=== PATIENT | male | born 1960 | race Two or more races ===

== ENCOUNTER 2023-07-07 08:47 | Inpatient (IN) | payer OTHER ==
[~2023-07-07] VITALS: Ht 165.1 cm; Wt 56.7 kg
--- NOTE | 2023-07-07 08:50 | NUR ---
PACIENTE ALERTA Y ORIENTADO X3 QUIEN REFEIRE PROBELMAS PARA ORINAR Y DOLOR EN VEJIGA.PACIENTE REFIERE RECIBIO TRATAMIENTO DE CANCER HACE JOSE ANO Y EL MISMO ABANDONO EL TRATAMIENTO.
--- NOTE | 2023-07-07 08:58 | NUR ---
PACIENTE REFIERE QUE EL DOLOR ES SOLO AL ORINAR.
--- NOTE | 2023-07-07 10:37 | NUR ---
SE EDUCA A PTE SOBRE PROCEDIMIENTO MEDICO SOLICITADO POR MD EN TURNO. AL MOMENTO PTE REFIERE ENTENDER Y SE REALIZA MAHAD DE MUESTRAS BAJO MEDIDAS ASEPTICAS Y MITALI ORDEN MEDICA.
[2023-07-07 11:04] LABS: PH,URINE 5.5 (5.0-8.0); URINE APPEARANCE Cloudy; URINE BILIRRUBIN Negative (NEGATIVE); URINE BLOOD Moderate; URINE COLOR Yellow; URINE GLUCOSE Negative (NEGATIVE); URINE LEUKOCYTE Large; URINE NITRATE Positive; URINE PROTEIN 30 (NEGATIVE); URINE UROBILINOGEN 0.2 E.U./dl
[2023-07-07 11:08] LABS: HEMATOCRIT 34.6 % (39.0-48.0); HEMOGLOBIN 11.4 g/dL (13-16.00); MEAN CELL VOLUME 90.6 fL (80.0-100.00); MEAN CORPUSCULAR HEMOGLOBIN 29.8 pg (27.00-32.0); MEAN CORPUSCULAR HGB CONC 32.9 g/dl (32.0-36.0); PLATELET COUNT 336 K/uL (150-450); RED BLOOD COUNT 3.82 M/uL (4.00-6.00); RED CELL DISTRIBUTION WIDTH 14.3 % (11.5-14.5); URINE EPITHELIAL CELLS 7.8 uL (0.0-38.8); URINE RBC 63.8 uL (0.0-20.8); URINE WBC 1036.3 uL (0.0-23.2)
[2023-07-07 11:30] LABS: ALBUMIN 3.3 gm/dL (3.4-5.0); BILIRUBIN TOTAL 0.53 mg/dL (0.3-1.2); CALCIUM 9.9 mg/dL (8.5-10.1); CREATININE SERUM 2.24 mg/dL (0.70-1.30); GFR 29.85; GLOBULINA 5.2 G/DL (2.4-3.5); POTASSIUM 4.04 mEq/L (3.5-5.1); TOTAL PROTEIN 8.5 gm/dL (6.4-8.2)
[2023-07-07 11:51] LABS: URINE BACTERIA > 9821.5 uL (0.0-1933)
--- NOTE | 2023-07-07 13:39 | NUR ---
SE UBICA A PTE EN AREA DE OBSERVACION, SE CANALIZA BAJO MEDIDAS ASEPTICAS Y SE COLOCA IV FLUIDS A 125 MLS/HR. PEND CT
[2023-07-07] MEDS ORDERED: 0.9 % SODIUM CHLORIDE 1,000 ML IV SCH ×2 (13:45→17:45)
[2023-07-07] MEDS ORDERED: hydrALAZINE HCL 20 MG VIAL IV PRN (17:45)
[2023-07-07] MEDS ORDERED: ACETAMINOPHEN 500 MG GEL..CAP PO PRN (17:45)
[2023-07-07] MEDS ORDERED: ONDANSETRON HCL 4 MG in 0.9 % SODIUM CHLORIDE 50 ML IV PRN (17:45)
[2023-07-07] MEDS ORDERED: MORPHINE SULFATE 4 MG/ML CARTRIDGE IV PRN (17:45)
[2023-07-07] MEDS ORDERED: CEFTRIAXONE SODIUM 1,000 MG VIAL IV SCH (17:48)
[2023-07-07] MEDS ORDERED: TAMSULOSIN HCL 0.4 MG CAP PO SCH (17:49)
[2023-07-07 19:54] LABS: ALBUMIN 2.7 gm/dL (3.4-5.0); CALCIUM 8.7 mg/dL (8.5-10.1); GFR 34.02; PHOSPHOROUS 2.9 mg/dL (2.5-4.9); POTASSIUM 4.11 mEq/L (3.5-5.1)
[2023-07-07] MEDS ORDERED: FAMOTIDINE/PF 20 MG in 0.9 % SODIUM CHLORIDE 8 ML IV PUSH SCH (21:00)
[2023-07-08 08:37] LABS: PH,URINE 5.5 (5.0-8.0); URINE APPEARANCE Turbid; URINE BILIRRUBIN Negative (NEGATIVE); URINE BLOOD Moderate; URINE COLOR Yellow; URINE GLUCOSE Negative (NEGATIVE); URINE LEUKOCYTE Large; URINE NITRATE Positive; URINE PROTEIN 30 (NEGATIVE); URINE UROBILINOGEN 0.2 E.U./dl
[2023-07-08 08:41] LABS: HEMATOCRIT 28.9 % (39.0-48.0); MEAN CELL VOLUME 89.7 fL (80.0-100.00); MEAN CORPUSCULAR HGB CONC 33.3 g/dl (32.0-36.0); PLATELET COUNT 271 K/uL (150-450); RED BLOOD COUNT 3.23 M/uL (4.00-6.00); RED CELL DISTRIBUTION WIDTH 14.7 % (11.5-14.5)
[2023-07-08 08:45] LABS: URINE BACTERIA 2511.1 uL (0.0-1933); URINE EPITHELIAL CELLS 7.1 uL (0.0-38.8); URINE RBC 90.9 uL (0.0-20.8)
[2023-07-08 08:47] LABS: HEMOGLOBIN 9.6 g/dL (13-16.00); MEAN CORPUSCULAR HEMOGLOBIN 29.7 pg (27.00-32.0)
[2023-07-08] MEDS ORDERED: ENOXAPARIN SODIUM 40 MG/0.4 ML SYRINGE SUBCUTANEO SCH (09:00)
[2023-07-08 09:23] LABS: ALBUMIN 2.6 gm/dL (3.4-5.0); BILIRUBIN TOTAL 0.44 mg/dL (0.3-1.2); BILIRUBIN,CONJUGATED 0.14 mg/dL (0.0-0.2); BILIRUBIN,UNCONJUGATED 0.3 mg/dL (0.0-0.6); C-REACTIVE PROTEIN 5.3 MG/DL (0.00-0.29); CALCIUM 8.7 mg/dL (8.5-10.1); CHOL HDL RATIO 2.3 (0-5.0); CREATININE SERUM 2.09 mg/dL (0.70-1.30); GFR 32.34; GLOBULINA 3.5 G/DL (2.4-3.5); POTASSIUM 4.07 mEq/L (3.5-5.1); TOTAL PROTEIN 6.1 gm/dL (6.4-8.2)
[2023-07-08 09:40] LABS: INR 1.04; PARTIAL THROMBOPLASTIN TIME 32.7 SECONDS (22.0-34.0); PROTHROMBIN TIME 10.9 SECONDS (9.0-11.5)
[2023-07-08 09:44] LABS: ERYTHROCYTE SEDIMENTATION RATE 86 mm/hr
[2023-07-09] MEDS ORDERED: FAMOTIDINE/PF 20 MG in 0.9 % SODIUM CHLORIDE 8 ML IV PUSH SCH (09:00)
[2023-07-10 11:02] LABS: HEMATOCRIT 37.8 % (39.0-48.0); MEAN CELL VOLUME 88.5 fL (80.0-100.00); MEAN CORPUSCULAR HEMOGLOBIN 30.4 pg (27.00-32.0); MEAN CORPUSCULAR HGB CONC 34.3 g/dl (32.0-36.0); PLATELET COUNT 248 K/uL (150-450); RED BLOOD COUNT 4.27 M/uL (4.00-6.00)
[2023-07-10] MEDS ORDERED: MORPHINE SULFATE 4 MG/ML CARTRIDGE IV PRN (14:15)
[2023-07-10] MEDS ORDERED: CHLORHEXIDINE GLUCONATE 120 ML BOTTLE TOP ONE ×2 (21:02→21:30)
[2023-07-11] MEDS ORDERED: DIPHENHYDRAMINE HCL 50 MG/ML VIAL 1ML ONE (00:47)
[2023-07-11] MEDS ORDERED: DIPHENHYDRAMINE HCL 50 MG in 0.9 % SODIUM CHLORIDE 50 ML IV ONE (01:00)
[2023-07-11] MEDS ORDERED: OXYBUTYNIN CHLORIDE 5 MG TABLET PO ONE (01:00)
[2023-07-11] MEDS ORDERED: ONDANSETRON HCL 2 MG/ML VIAL ONE (01:58)
[2023-07-11] MEDS ORDERED: hydrALAZINE HCL 20 MG VIAL ONE (02:25)
[2023-07-11 06:26] LABS: HEMATOCRIT 35.5 % (39.0-48.0); HEMOGLOBIN 11.9 g/dL (13-16.00); MEAN CELL VOLUME 87.2 fL (80.0-100.00); MEAN CORPUSCULAR HEMOGLOBIN 29.1 pg (27.00-32.0); MEAN CORPUSCULAR HGB CONC 33.4 g/dl (32.0-36.0); PLATELET COUNT 242 K/uL (150-450); RED BLOOD COUNT 4.08 M/uL (4.00-6.00)
[2023-07-11 07:07] LABS: ALBUMIN 2.7 gm/dL (3.4-5.0); CALCIUM 8.7 mg/dL (8.5-10.1); CREATININE SERUM 2.76 mg/dL (0.70-1.30); GFR 23.46; PHOSPHOROUS 2.2 mg/dL (2.5-4.9); POTASSIUM 4.04 mEq/L (3.5-5.1)
[2023-07-11] MEDS ORDERED: SODIUM CHLORIDE 0.45 % 1,000 ML IV SCH (13:00)
[2023-07-11] MEDS ORDERED: MEROPENEM 500 MG/VIAL VIAL IV SCH (17:00)
[2023-07-12 04:43] LABS: HEMATOCRIT 35.1 % (39.0-48.0); HEMOGLOBIN 11.7 g/dL (13-16.00); MEAN CELL VOLUME 87.9 fL (80.0-100.00); MEAN CORPUSCULAR HEMOGLOBIN 29.3 pg (27.00-32.0); MEAN CORPUSCULAR HGB CONC 33.4 g/dl (32.0-36.0); PLATELET COUNT 227 K/uL (150-450); RED BLOOD COUNT 3.99 M/uL (4.00-6.00)
[2023-07-12 04:59] LABS: CALCIUM 8.2 mg/dL (8.5-10.1); CREATININE SERUM 3.07 mg/dL (0.70-1.30); GFR 20.75; POTASSIUM 4.13 mEq/L (3.5-5.1)
[2023-07-12 05:01] LABS: ALBUMIN 2.4 gm/dL (3.4-5.0); CALCIUM 8.3 mg/dL (8.5-10.1); CREATININE SERUM 3.06 mg/dL (0.70-1.30); GFR 20.83; PHOSPHOROUS 3.1 mg/dL (2.5-4.9); POTASSIUM 4.13 mEq/L (3.5-5.1)
[2023-07-12] MEDS ORDERED: OXYBUTYNIN CHLORIDE 5 MG TABLET PO SCH (10:39)
[2023-07-12 11:59] LABS: HEMATOCRIT 33.7 % (39.0-48.0); HEMOGLOBIN 11.3 g/dL (13-16.00); MEAN CELL VOLUME 87.7 fL (80.0-100.00); MEAN CORPUSCULAR HEMOGLOBIN 29.5 pg (27.00-32.0); MEAN CORPUSCULAR HGB CONC 33.6 g/dl (32.0-36.0); PLATELET COUNT 217 K/uL (150-450); RED BLOOD COUNT 3.84 M/uL (4.00-6.00); RED CELL DISTRIBUTION WIDTH 15.2 % (11.5-14.5)
[2023-07-13 05:52] LABS: ALBUMIN 2.3 gm/dL (3.4-5.0); BILIRUBIN TOTAL 0.59 mg/dL (0.3-1.2); CALCIUM 8.2 mg/dL (8.5-10.1); CREATININE SERUM 2.48 mg/dL (0.70-1.30); GFR 26.54; GLOBULINA 3.2 G/DL (2.4-3.5); POTASSIUM 4.19 mEq/L (3.5-5.1); TOTAL PROTEIN 5.5 gm/dL (6.4-8.2)
[2023-07-13] MEDS ORDERED: MEROPENEM 500 MG/VIAL VIAL IV SCH (17:00)
[2023-07-14 08:08] LABS: CALCIUM 8.9 mg/dL (8.5-10.1); CREATININE SERUM 2.07 mg/dL (0.70-1.30); GFR 32.7; POTASSIUM 4.54 mEq/L (3.5-5.1)
[2023-07-14 08:09] LABS: HEMATOCRIT 34.3 % (39.0-48.0); HEMOGLOBIN 11.5 g/dL (13-16.00); MEAN CELL VOLUME 87.4 fL (80.0-100.00); MEAN CORPUSCULAR HEMOGLOBIN 29.4 pg (27.00-32.0); MEAN CORPUSCULAR HGB CONC 33.7 g/dl (32.0-36.0); PLATELET COUNT 240 K/uL (150-450); RED BLOOD COUNT 3.92 M/uL (4.00-6.00); RED CELL DISTRIBUTION WIDTH 14.8 % (11.5-14.5)
[2023-07-14] MEDS ORDERED: AMLODIPINE BESYLATE 2.5 MG TABLET PO SCH (11:26)
[2023-07-15] MEDS ORDERED: MINERAL OIL 30 ML BLIST.PACK PO STA (12:06)
[2023-07-15] MEDS ORDERED: LACTULOSE 20 G/30 ML BLIST.PACK PO STA (12:07)
[2023-07-15] MEDS ORDERED: DOCUSATE CALCIUM 240 MG CAPSULE PO SCH (12:07)
[2023-07-17 06:18] LABS: HEMATOCRIT 35.4 % (39.0-48.0); MEAN CELL VOLUME 87.3 fL (80.0-100.00); MEAN CORPUSCULAR HEMOGLOBIN 29.5 pg (27.00-32.0); MEAN CORPUSCULAR HGB CONC 33.8 g/dl (32.0-36.0); PLATELET COUNT 267 K/uL (150-450); RED BLOOD COUNT 4.06 M/uL (4.00-6.00); RED CELL DISTRIBUTION WIDTH 14.1 % (11.5-14.5)
[2023-07-17 06:25] LABS: ALBUMIN 2.7 gm/dL (3.4-5.0); BILIRUBIN TOTAL 0.53 mg/dL (0.3-1.2); CREATININE SERUM 1.64 mg/dL (0.70-1.30); GFR 42.78; GLOBULINA 3.8 G/DL (2.4-3.5); POTASSIUM 4.69 mEq/L (3.5-5.1); TOTAL PROTEIN 6.5 gm/dL (6.4-8.2)
[2023-07-17] MEDS ORDERED: MEROPENEM 500 MG/VIAL VIAL IV SCH ×2 (09:00→17:00)
[2023-07-17] MEDS ORDERED: MIDAZOLAM HCL 2 MG/2 ML VIAL IV PUSH ONE (17:15)
[2023-07-17] MEDS ORDERED: fentaNYL CITRATE 50 MCG/ML AMPUL IV PUSH ONE (17:15)
[2023-07-18] MEDS ORDERED: MORPHINE SULFATE 4 MG/ML CARTRIDGE IV PRN (00:45)
[2023-07-19 06:51] LABS: HEMATOCRIT 34.8 % (39.0-48.0); HEMOGLOBIN 11.8 g/dL (13-16.00); MEAN CELL VOLUME 86.8 fL (80.0-100.00); MEAN CORPUSCULAR HEMOGLOBIN 29.5 pg (27.00-32.0); PLATELET COUNT 316 K/uL (150-450); RED BLOOD COUNT 4.01 M/uL (4.00-6.00); RED CELL DISTRIBUTION WIDTH 14.7 % (11.5-14.5)
[2023-07-19 07:36] LABS: ALBUMIN 2.8 gm/dL (3.4-5.0); CALCIUM 8.6 mg/dL (8.5-10.1); CREATININE SERUM 1.44 mg/dL (0.70-1.30); GFR 49.71; PHOSPHOROUS 3.1 mg/dL (2.5-4.9); POTASSIUM 4.48 mEq/L (3.5-5.1)
== END 2023-07-19 19:09 | disposition home or self-care (01) | DRG 694 ==
LOC: ER 08:47 → MEDJ 18:19
PROVIDERS: General Practice; Internal Medicine Nephrology; Urology; ADMIT Internal Medicine; ATTEND Internal Medicine
PROC: BW21ZZZ Computerized Tomography (CT Scan) of Abdomen and Pelvis (ICD-10-PCS; principal; 2023-07-07)
PROC: 0T9130Z Drainage of Left Kidney with Drainage Device, Percutaneous Approach (ICD-10-PCS; 2023-07-17)
PROC: 0T9030Z Drainage of Right Kidney with Drainage Device, Percutaneous Approach (ICD-10-PCS; 2023-07-17)
DX: N13.39 Other hydronephrosis (principal); N39.0 Urinary tract infection, site not specified; N13.5 Crossing vessel and stricture of ureter without hydronephrosis; N17.8 Other acute kidney failure; R30.0 Dysuria; D72.828 Other elevated white blood cell count

== ENCOUNTER 2023-11-09 11:44 | Inpatient (IN) | payer OTHER ==
[~2023-11-09] VITALS: Ht 152.4 cm; Wt 49.9 kg
[2023-11-09 15:23] LABS: HEMATOCRIT 33.6 % (39.0-48.0); HEMOGLOBIN 11.2 g/dL (13-16.00); MEAN CELL VOLUME 91.5 fL (80.0-100.00); MEAN CORPUSCULAR HEMOGLOBIN 30.6 pg (27.00-32.0); MEAN CORPUSCULAR HGB CONC 33.4 g/dl (32.0-36.0); PLATELET COUNT 517 K/uL (150-450); RED BLOOD COUNT 3.68 M/uL (4.00-6.00); RED CELL DISTRIBUTION WIDTH 13.6 % (11.5-14.5)
[2023-11-09 15:27] LABS: ALBUMIN 3.1 gm/dL (3.4-5.0); ALKALINE PHOSPHATASE 94 U/L (50-136); ALT/SGPT 22 U/L (12-78); ANION GAP 15 (10.0-20.0); AST/SGOT 29 U/L (15-37); BILIRUBIN TOTAL 0.45 mg/dL (0.3-1.2); BLOOD UREA NITROGEN 17 mg/dL (7-18); BUN CREA RATIO 11 (7.0-25.0); CALCIUM 9.8 mg/dL (8.5-10.1); CARBON DIOXIDE 23 mEq/L (21-32); CHLORIDE 98 mmol/L (98-107); CREATININE SERUM 1.51 mg/dL (0.70-1.30); GFR 47.06; GLUCOSE FASTING 92 mg/dL (65-100); OSMOLALITY SERUM 264 MOSM/KG (275-295); POTASSIUM 4.72 mEq/L (3.5-5.1); SODIUM 131 mmol/L (136-145); TOTAL PROTEIN 7.9 gm/dL (6.4-8.2)
[2023-11-09] MEDS ORDERED: MEPERIDINE HCL/PF 50 MG/ML VIAL IM STA (15:29)
[2023-11-09 15:34] LABS: BILIRUBIN,CONJUGATED < 0.10 mg/dL (0.0-0.2); BILIRUBIN,UNCONJUGATED 0.35 mg/dL (0.0-0.6)
[2023-11-09 15:35] LABS: PH,URINE 8.5 (5.0-8.0); URINE APPEARANCE Turbid; URINE BILIRRUBIN Negative (NEGATIVE); URINE BLOOD Large; URINE COLOR Yellow; URINE GLUCOSE Negative (NEGATIVE); URINE KETONE Negative (NEGATIVE); URINE LEUKOCYTE Large; URINE NITRATE Negative; URINE UROBILINOGEN 0.2 E.U./dl
[2023-11-09 15:39] LABS: URINE CAST 12.52 uL (0.0-1.40); URINE EPITHELIAL CELLS 20.8 uL (0.0-38.8); URINE RBC 1603.5 uL (0.0-20.8); URINE WBC 442.3 uL (0.0-23.2)
[2023-11-09] MEDS ORDERED: PROMETHAZINE HCL 25 MG/ML AMPUL ONE (15:47)
[2023-11-09 15:56] LABS: URINE BACTERIA > 9821.5 uL (0.0-1933); URINE PROTEIN 300 (NEGATIVE)
[2023-11-09] MEDS ORDERED: 0.9 % SODIUM CHLORIDE 1,000 ML IV SCH (17:30)
[2023-11-09] MEDS ORDERED: OxyCODONE HCL/APAP UD (PERCOCET) PO PRN (17:45)
[2023-11-09] MEDS ORDERED: ONDANSETRON HCL 4 MG in 0.9 % SODIUM CHLORIDE 50 ML IV PRN (17:45)
[2023-11-09] MEDS ORDERED: ACETAMINOPHEN 500 MG GEL..CAP PO PRN (17:45)
[2023-11-09] MEDS ORDERED: MEROPENEM 500 MG in 0.9 % SODIUM CHLORIDE 50 ML IV SCH (18:30)
[2023-11-09 18:45] LABS: INR 1.02; PARTIAL THROMBOPLASTIN TIME 35.5 SECONDS (22.0-34.0); PROTHROMBIN TIME 10.7 SECONDS (9.0-11.5)
[2023-11-09 18:46] LABS: MAGNESIUM 1.9 mg/dL (1.8-2.4); PHOSPHOROUS 4.2 mg/dL (2.5-4.9)
[2023-11-09 18:49] LABS: C-REACTIVE PROTEIN 8.76 MG/DL (0.00-0.29)
[2023-11-09 21:43] LABS: ABG PH 7.421 (7.35-7.45); ABG PO2 101.8 mmHg (80-100); ABG pCO2 36.5 mmHg (35-45); BASE EXCESS -0.8 mmol/l; BICARBONATE 23.2 mmol/l (23-25); SaO2 97.9 %; Tco2 24.3 mmol/l
[2023-11-09 22:00] LABS: allen test SATISFACTORY; o2 21 %; puncture site RADIAL RIGHT
[2023-11-10] MEDS ORDERED: SODIUM CL 0.9% 50 ML IV.SOLN IV ONE (08:03)
[2023-11-10] MEDS ORDERED: FAMOTIDINE/PF 20 MG in 0.9 % SODIUM CHLORIDE 8 ML IV PUSH SCH (09:00)
[2023-11-10] MEDS ORDERED: ENOXAPARIN SODIUM 30 MG/0.3 ML SYRINGE SUBCUTANEO SCH (09:00)
[2023-11-10 12:46] LABS: ALBUMIN 2.9 gm/dL (3.4-5.0); CALCIUM 9.2 mg/dL (8.5-10.1); CREATININE SERUM 1.84 mg/dL (0.70-1.30); GFR 37.46; PHOSPHOROUS 4.2 mg/dL (2.5-4.9); POTASSIUM 4.4 mEq/L (3.5-5.1); URIC ACID 6.9 mg/dL (3.5-8.5)
[2023-11-11] MEDS ORDERED: FAMOTIDINE/PF 20 MG/2 ML VIAL ONE (09:11)
[2023-11-11] MEDS ORDERED: MORPHINE SULFATE 4 MG/ML CARTRIDGE IV PRN (12:15)
[2023-11-12 06:58] LABS: HEMATOCRIT 29.4 % (39.0-48.0); HEMOGLOBIN 9.9 g/dL (13-16.00); MEAN CELL VOLUME 90.5 fL (80.0-100.00); MEAN CORPUSCULAR HEMOGLOBIN 30.5 pg (27.00-32.0); MEAN CORPUSCULAR HGB CONC 33.7 g/dl (32.0-36.0); PLATELET COUNT 376 K/uL (150-450); RED BLOOD COUNT 3.25 M/uL (4.00-6.00); RED CELL DISTRIBUTION WIDTH 13.9 % (11.5-14.5)
[2023-11-12] MEDS ORDERED: FAMOTIDINE/PF 20 MG/2 ML VIAL ONE (09:40)
[2023-11-12 17:24] LABS: PH,URINE 6.5 (5.0-8.0); URINE APPEARANCE Clear; URINE BILIRRUBIN Negative (NEGATIVE); URINE BLOOD Moderate; URINE COLOR Yellow; URINE GLUCOSE Negative (NEGATIVE); URINE KETONE Negative (NEGATIVE); URINE LEUKOCYTE Small; URINE NITRATE Negative; URINE PROTEIN 30 (NEGATIVE); URINE UROBILINOGEN 0.2 E.U./dl
[2023-11-12 17:27] LABS: URINE BACTERIA 234.2 uL (0.0-1933); URINE EPITHELIAL CELLS 4.7 uL (0.0-38.8); URINE RBC 122.7 uL (0.0-20.8); URINE WBC 32.5 uL (0.0-23.2)
[2023-11-12 17:32] LABS: URINE CAST 0.61 uL (0.0-1.40)
[2023-11-13 05:20] LABS: HEMATOCRIT 34.4 % (39.0-48.0); MEAN CORPUSCULAR HGB CONC 34.4 g/dl (32.0-36.0); PLATELET COUNT 387 K/uL (150-450); RED BLOOD COUNT 3.74 M/uL (4.00-6.00); RED CELL DISTRIBUTION WIDTH 14.1 % (11.5-14.5)
[2023-11-13 05:21] LABS: HEMOGLOBIN 11.8 g/dL (13-16.00); MEAN CORPUSCULAR HEMOGLOBIN 31.5 pg (27.00-32.0)
[2023-11-13] MEDS ORDERED: FAMOTIDINE/PF 20 MG/2 ML VIAL ONE (09:57)
[2023-11-13] MEDS ORDERED: fentaNYL CITRATE 50 MCG/ML AMPUL IV PUSH ONE (16:30)
[2023-11-13] MEDS ORDERED: MIDAZOLAM HCL 2 MG/2 ML VIAL IV PUSH ONE (16:30)
[2023-11-15 08:58] LABS: HEMOGLOBIN 10.5 g/dL (13-16.00); MEAN CELL VOLUME 91.6 fL (80.0-100.00); MEAN CORPUSCULAR HGB CONC 33.9 g/dl (32.0-36.0); PLATELET COUNT 355 K/uL (150-450); RED BLOOD COUNT 3.38 M/uL (4.00-6.00); RED CELL DISTRIBUTION WIDTH 14.3 % (11.5-14.5)
[2023-11-15 09:42] LABS: CALCIUM 8.9 mg/dL (8.5-10.1); CREATININE SERUM 2.07 mg/dL (0.70-1.30); GFR 32.7; POTASSIUM 4.6 mEq/L (3.5-5.1)
[2023-11-15] MEDS ORDERED: DOCUSATE CALCIUM 240 MG CAPSULE PO SCH (17:00)
[2023-11-15] MEDS ORDERED: LACTULOSE 20 G/30 ML BLIST.PACK PO SCH (21:00)
[2023-11-16 06:35] LABS: HEMATOCRIT 30.1 % (39.0-48.0); HEMOGLOBIN 10.4 g/dL (13-16.00); MEAN CELL VOLUME 91.1 fL (80.0-100.00); MEAN CORPUSCULAR HEMOGLOBIN 31.5 pg (27.00-32.0); MEAN CORPUSCULAR HGB CONC 34.6 g/dl (32.0-36.0); PLATELET COUNT 332 K/uL (150-450); RED BLOOD COUNT 3.31 M/uL (4.00-6.00)
[2023-11-16] MEDS ORDERED: MORPHINE SULFATE 4 MG/ML CARTRIDGE IV PRN (19:45)
[2023-11-17 08:46] LABS: HEMATOCRIT 31.3 % (39.0-48.0); HEMOGLOBIN 10.4 g/dL (13-16.00); MEAN CELL VOLUME 90.5 fL (80.0-100.00); MEAN CORPUSCULAR HEMOGLOBIN 30.1 pg (27.00-32.0); MEAN CORPUSCULAR HGB CONC 33.3 g/dl (32.0-36.0); PLATELET COUNT 368 K/uL (150-450); RED BLOOD COUNT 3.45 M/uL (4.00-6.00)
[2023-11-17 14:14] LABS: BILIRUBIN TOTAL 0.66 mg/dL (0.3-1.2); CALCIUM 9.8 mg/dL (8.5-10.1); CREATININE SERUM 1.48 mg/dL (0.70-1.30); GFR 48.16; POTASSIUM 4.38 mEq/L (3.5-5.1)
[2023-11-18 07:53] LABS: HEMATOCRIT 27.2 % (39.0-48.0); HEMOGLOBIN 9.4 g/dL (13-16.00); MEAN CELL VOLUME 90.7 fL (80.0-100.00); MEAN CORPUSCULAR HEMOGLOBIN 31.5 pg (27.00-32.0); MEAN CORPUSCULAR HGB CONC 34.7 g/dl (32.0-36.0); PLATELET COUNT 348 K/uL (150-450); RED BLOOD COUNT 2.99 M/uL (4.00-6.00); RED CELL DISTRIBUTION WIDTH 13.7 % (11.5-14.5)
[2023-11-19 08:06] LABS: BILIRUBIN TOTAL 0.48 mg/dL (0.3-1.2); CALCIUM 9.2 mg/dL (8.5-10.1); CREATININE SERUM 1.47 mg/dL (0.70-1.30); GFR 48.54; GLOBULINA 3.9 G/DL (2.4-3.5); POTASSIUM 5.26 mEq/L (3.5-5.1); TOTAL PROTEIN 6.9 gm/dL (6.4-8.2)
== END 2023-11-19 13:39 | disposition home or self-care (01) | DRG 872 ==
LOC: ER 11:45 → MEDI 17:56
PROVIDERS: General Practice; Internal Medicine; Internal Medicine Nephrology; ADMIT Internal Medicine; ATTEND Internal Medicine
PROC: BW21ZZZ Computerized Tomography (CT Scan) of Abdomen and Pelvis (ICD-10-PCS; principal; 2023-11-09)
PROC: 0T9130Z Drainage of Left Kidney with Drainage Device, Percutaneous Approach (ICD-10-PCS; 2023-11-13)
PROC: 0T9030Z Drainage of Right Kidney with Drainage Device, Percutaneous Approach (ICD-10-PCS; 2023-11-13)
DX: A41.9 Sepsis, unspecified organism (principal); N39.0 Urinary tract infection, site not specified; N17.8 Other acute kidney failure; N99.522 Malfunction of incontinent external stoma of urinary tract; N18.9 Chronic kidney disease, unspecified; C67.9 Malignant neoplasm of bladder, unspecified; D72.828 Other elevated white blood cell count

== ENCOUNTER 2023-12-20 15:38 | Inpatient (IN) | payer OTHER ==
[~2023-12-20] VITALS: Ht 165.1 cm; Wt 52.2 kg
--- NOTE | 2023-12-20 15:50 | NUR ---
SE RECIBE PTE MASCULINO ALERTA Y ORIENTADO EN LAS JOSE ESFERAS REFIERE DOLOR EN AREA INGUINAL L+, PTE NIEGA TRAUMA U ALGUNA SINTOMATOLOGIA ADICIONAL. PTE CON NEFROSTOMIA BILATERAL, HX DE CA METASTIZADO. SE ASHER S/V Y SE UBICA.
[2023-12-20] MEDS ORDERED: FAMOTIDINE/PF 20 MG/2 ML VIAL ONE (17:14)
[2023-12-20] MEDS ORDERED: MULTIVIT INFUSN,ADULT 4,VIT K 10 ML VIAL IV ONE (17:15)
[2023-12-20] MEDS ORDERED: OxyCODONE HCL/APAP UD (PERCOCET) PO ONE (17:15)
[2023-12-20] MEDS ORDERED: 0.9 % SODIUM CHLORIDE 500 ML IV ONE (17:15)
[2023-12-20] MEDS ORDERED: FAMOTIDINE/PF 20 MG/2 ML VIAL IV ONE (17:15)
--- NOTE | 2023-12-20 17:17 | NUR ---
PTE ALERTA Y ORIENTADO X3, AAMIR ALONSO ORIENTA SOBRE TX MEDICO Y REFIERE ACEPTAR. COLECTA MUESTRAS DE LAB Y CANALIZA BAJO MEDIDAS ASEPTICAS. ADMINISTRA MEDS MITALI ORDEN MEDICA Y PTE NO PRESENTA REACCION ADVERSA.
[2023-12-20 17:59] LABS: ALBUMIN 2.7 gm/dL (3.4-5.0); BILIRUBIN TOTAL 0.41 mg/dL (0.3-1.2); C-REACTIVE PROTEIN 8.22 MG/DL (0.00-0.29); CALCIUM 9.9 mg/dL (8.5-10.1); CREATININE SERUM 1.32 mg/dL (0.70-1.30); GFR 54.96; GLOBULINA 4.7 G/DL (2.4-3.5); POTASSIUM 4.18 mEq/L (3.5-5.1); TOTAL PROTEIN 7.4 gm/dL (6.4-8.2)
[2023-12-20 18:02] LABS: HEMATOCRIT 25.4 % (39.0-48.0); MEAN CELL VOLUME 88.3 fL (80.0-100.00); MEAN CORPUSCULAR HGB CONC 33.9 g/dl (32.0-36.0); PLATELET COUNT 469 K/uL (150-450); RED BLOOD COUNT 2.88 M/uL (4.00-6.00)
[2023-12-20 18:06] LABS: ERYTHROCYTE SEDIMENTATION RATE > 130 mm/hr; HEMOGLOBIN 8.6 g/dL (13-16.00); MEAN CORPUSCULAR HEMOGLOBIN 29.8 pg (27.00-32.0)
[2023-12-20] MEDS ORDERED: CEFTRIAXONE SODIUM 2,000 MG VIAL ONE (18:54)
[2023-12-20] MEDS ORDERED: CEFTRIAXONE SODIUM 2,000 MG VIAL IV ONE (19:00)
--- NOTE | 2023-12-20 19:27 | NUR ---
SE EDUCA A PTE SOBRE MUESTRAS A REALIZAR EL MISMO REFIERE ENTENDER. SE REALIZAZN MUESTRAS EN TOTALIDAD.
[2023-12-20 19:43] LABS: PH,URINE 6.5 (5.0-8.0); URINE APPEARANCE Cloudy; URINE BILIRRUBIN Negative (NEGATIVE); URINE BLOOD Small; URINE COLOR Yellow; URINE GLUCOSE Negative (NEGATIVE); URINE KETONE Negative (NEGATIVE); URINE LEUKOCYTE Large; URINE NITRATE Positive; URINE UROBILINOGEN 0.2 E.U./dl
[2023-12-20 19:47] LABS: URINE CAST 3.96 uL (0.0-1.40); URINE EPITHELIAL CELLS 6.1 uL (0.0-38.8); URINE RBC 6.8 uL (0.0-20.8); URINE WBC 1554.1 uL (0.0-23.2)
[2023-12-20 20:19] LABS: URINE BACTERIA > 9821.5 uL (0.0-1933); URINE PROTEIN 100 (NEGATIVE)
[2023-12-20] MEDS ORDERED: MEPERIDINE HCL/PF 25 MG/ML VIAL IM ONE (23:15)
[2023-12-20] MEDS ORDERED: ACETAMINOPHEN 500 MG GEL..CAP PO PRN (23:15)
[2023-12-20] MEDS ORDERED: ONDANSETRON HCL 4 MG in 0.9 % SODIUM CHLORIDE 50 ML IV PRN (23:15)
[2023-12-20] MEDS ORDERED: MEPERIDINE HCL/PF 25 MG/ML VIAL IM PRN (23:30)
[2023-12-20] MEDS ORDERED: 0.9 % SODIUM CHLORIDE 1,000 ML IV SCH (23:30)
[2023-12-20 23:52] LABS: ABG PH 7.422 (7.35-7.45); ABG PO2 83.3 mmHg (80-100); ABG pCO2 38.2 mmHg (35-45); BASE EXCESS 0.1 mmol/l; BICARBONATE 24.3 mmol/l (23-25); SaO2 96.4 %; Tco2 25.5 mmol/l
[2023-12-21 00:17] VITALS: BP 119/65
[2023-12-21] MEDS ORDERED: MEROPENEM 500 MG/VIAL VIAL IV SCH (01:00)
[2023-12-21 01:16] LABS: INR 1.1; PARTIAL THROMBOPLASTIN TIME 33.5 SECONDS (22.0-34.0); PROTHROMBIN TIME 11.9 SECONDS (9.0-11.5)
[2023-12-21 02:45] VITALS: BP 115/76; O2SAT 98
[2023-12-21 05:11] LABS: allen test SATISFACTORY; o2 21 %; puncture site RADIAL RIGHT
[2023-12-21 08:00] VITALS: BP 128/84; O2SAT 97
[2023-12-21] MEDS ORDERED: IRON FUM,PS/FOLIC/BCOMP,C NO.9 1 CAP CAPSULE PO SCH (09:00)
[2023-12-21] MEDS ORDERED: ENOXAPARIN SODIUM 40 MG/0.4 ML SYRINGE SUBCUTANEO SCH (09:00)
[2023-12-21] MEDS ORDERED: FAMOTIDINE/PF 20 MG in 0.9 % SODIUM CHLORIDE 8 ML IV PUSH SCH (09:00)
[2023-12-21 16:12] VITALS: BP 125/79; O2SAT 98
[2023-12-22 00:14] VITALS: BP 129/86; O2SAT 98
[2023-12-22 08:00] VITALS: BP 165/80; O2SAT 100
[2023-12-22 08:31] LABS: ALBUMIN 2.9 gm/dL (3.4-5.0); BILIRUBIN TOTAL 0.29 mg/dL (0.3-1.2); CALCIUM 9.9 mg/dL (8.5-10.1); CREATININE SERUM 1.15 mg/dL (0.70-1.30); GFR 64.44; GLOBULINA 4.5 G/DL (2.4-3.5); POTASSIUM 4.02 mEq/L (3.5-5.1); TOTAL PROTEIN 7.4 gm/dL (6.4-8.2)
[2023-12-22 08:33] LABS: HEMATOCRIT 30.5 % (39.0-48.0); HEMOGLOBIN 9.9 g/dL (13-16.00); MEAN CELL VOLUME 89.7 fL (80.0-100.00); MEAN CORPUSCULAR HEMOGLOBIN 29.3 pg (27.00-32.0); MEAN CORPUSCULAR HGB CONC 32.6 g/dl (32.0-36.0); PLATELET COUNT 525 K/uL (150-450)
[2023-12-22] MEDS ORDERED: OxyCODONE HCL/APAP UD (PERCOCET) PO PRN (09:30)
[2023-12-22 18:16] VITALS: BP 154/75; O2SAT 98
[2023-12-23 00:18] VITALS: BP 170/80; O2SAT 98
[2023-12-23 08:00] VITALS: BP 141/63; O2SAT 100
[2023-12-23] MEDS ORDERED: VITAMIN B COMPLEX/LYSINE 1 ML ML PO SCH ×2 (11:22→17:00)
[2023-12-24 00:13] VITALS: BP 142/74; O2SAT 98
[2023-12-24 07:55] VITALS: BP 152/67; O2SAT 100
[2023-12-24] MEDS ORDERED: AMPICILLIN SODIUM/SULBACTAM NA 3,000 MG in 0.9 % SODIUM CHLORIDE 100 ML IV SCH (18:00)
[2023-12-24 18:16] VITALS: BP 145/78; O2SAT 98
[2023-12-24] MEDS ORDERED: SODIUM CL 0.9% 100 ML IV.SOLN IV ONE ×2 (22:58→22:59)
[2023-12-25 00:34] VITALS: BP 136/79; O2SAT 100
[2023-12-25 08:06] VITALS: BP 150/72; O2SAT 100
[2023-12-25 08:45] LABS: HEMATOCRIT 27.3 % (39.0-48.0); MEAN CELL VOLUME 89.2 fL (80.0-100.00); MEAN CORPUSCULAR HGB CONC 33.4 g/dl (32.0-36.0); PLATELET COUNT 456 K/uL (150-450); RED BLOOD COUNT 3.06 M/uL (4.00-6.00); RED CELL DISTRIBUTION WIDTH 14.1 % (11.5-14.5)
[2023-12-25 08:50] LABS: HEMOGLOBIN 9.1 g/dL (13-16.00); MEAN CORPUSCULAR HEMOGLOBIN 29.7 pg (27.00-32.0)
[2023-12-25 09:03] LABS: CALCIUM 9.2 mg/dL (8.5-10.1); CREATININE SERUM 1.24 mg/dL (0.70-1.30); GFR 59.07; POTASSIUM 4.42 mEq/L (3.5-5.1)
[2023-12-25 16:00] VITALS: BP 144/84; O2SAT 98
[2023-12-26 00:39] VITALS: BP 138/73; O2SAT 100
[2023-12-26 08:01] VITALS: BP 164/88; O2SAT 100
[2023-12-26 15:05] VITALS: BP 170/80; O2SAT 96
[2023-12-26 15:35] LABS: MEAN CELL VOLUME 89.3 fL (80.0-100.00); MEAN CORPUSCULAR HGB CONC 32.6 g/dl (32.0-36.0); PLATELET COUNT 441 K/uL (150-450); RED BLOOD COUNT 2.91 M/uL (4.00-6.00); RED CELL DISTRIBUTION WIDTH 13.9 % (11.5-14.5)
[2023-12-26 15:36] LABS: HEMOGLOBIN 8.5 g/dL (13-16.00); MEAN CORPUSCULAR HEMOGLOBIN 29.2 pg (27.00-32.0)
[2023-12-26 16:05] LABS: ALBUMIN 2.5 gm/dL (3.4-5.0); BILIRUBIN TOTAL 0.26 mg/dL (0.3-1.2); CREATININE SERUM 1.32 mg/dL (0.70-1.30); GFR 54.96; GLOBULINA 4.1 G/DL (2.4-3.5); POTASSIUM 4.12 mEq/L (3.5-5.1); TOTAL PROTEIN 6.6 gm/dL (6.4-8.2)
[2023-12-26 17:00] VITALS: BP 151/82
[2023-12-27] VITALS: BP 150/67; O2SAT 100
[2023-12-27 08:00] VITALS: BP 160/77; O2SAT 100
[2023-12-27 15:30] VITALS: BP 149/73; O2SAT 100
[2023-12-28] VITALS: BP 146/81; O2SAT 98
[2023-12-28 08:00] VITALS: BP 170/84; O2SAT 98
[2023-12-28] MEDS ORDERED: AMLODIPINE BESYLATE 2.5 MG TABLET PO SCH (10:26)
[2023-12-28] MEDS ORDERED: IOVERSOL 320 MG/ML - 50 ML VIAL IV ONE (14:09)
[2023-12-28] MEDS ORDERED: MORPHINE SULFATE 4 MG/ML VIAL IV ONE ×2 (15:35→16:15)
[2023-12-28 17:50] VITALS: BP 101/71; O2SAT 95
[2023-12-29 00:39] VITALS: BP 139/69; O2SAT 99
[2023-12-29 08:00] VITALS: BP 155/71; O2SAT 100
[2023-12-29 08:20] LABS: HEMATOCRIT 24.9 % (39.0-48.0); MEAN CELL VOLUME 88.9 fL (80.0-100.00); MEAN CORPUSCULAR HGB CONC 32.9 g/dl (32.0-36.0); PLATELET COUNT 400 K/uL (150-450); RED CELL DISTRIBUTION WIDTH 13.8 % (11.5-14.5)
[2023-12-29 08:21] LABS: HEMOGLOBIN 8.2 g/dL (13-16.00); MEAN CORPUSCULAR HEMOGLOBIN 29.2 pg (27.00-32.0)
[2023-12-29 08:50] LABS: ALBUMIN 2.4 gm/dL (3.4-5.0); BILIRUBIN TOTAL 0.28 mg/dL (0.3-1.2); CALCIUM 8.9 mg/dL (8.5-10.1); CREATININE SERUM 1.35 mg/dL (0.70-1.30); GFR 53.55; GLOBULINA 3.6 G/DL (2.4-3.5); POTASSIUM 4.26 mEq/L (3.5-5.1)
[2023-12-29 16:19] VITALS: BP 135/63; O2SAT 100
[2023-12-29 23:36] VITALS: BP 139/83; O2SAT 100
[2023-12-30] MEDS ORDERED: SODIUM CL 0.9% 100 ML IV.SOLN IV ONE (07:31)
[2023-12-30 08:00] VITALS: BP 150/82; O2SAT 99
[2023-12-30] MEDS ORDERED: OxyCODONE HCL/APAP UD (PERCOCET) PO PRN (08:15)
[2023-12-30 11:36] LABS: HEMATOCRIT 24.6 % (39.0-48.0); MEAN CELL VOLUME 88.7 fL (80.0-100.00); MEAN CORPUSCULAR HEMOGLOBIN 28.8 pg (27.00-32.0); MEAN CORPUSCULAR HGB CONC 32.5 g/dl (32.0-36.0); PLATELET COUNT 431 K/uL (150-450); RED BLOOD COUNT 2.77 M/uL (4.00-6.00); RED CELL DISTRIBUTION WIDTH 13.8 % (11.5-14.5)
[2023-12-30 16:20] VITALS: BP 140/67; O2SAT 98
[2023-12-31 00:45] VITALS: BP 130/79; O2SAT 100
[2023-12-31 06:53] LABS: MEAN CELL VOLUME 87.7 fL (80.0-100.00); MEAN CORPUSCULAR HGB CONC 33.8 g/dl (32.0-36.0); PLATELET COUNT 431 K/uL (150-450); RED BLOOD COUNT 2.61 M/uL (4.00-6.00); RED CELL DISTRIBUTION WIDTH 13.7 % (11.5-14.5)
[2023-12-31 08:07] LABS: MEAN CORPUSCULAR HEMOGLOBIN 29.5 pg (27.00-32.0)
[2023-12-31 08:08] LABS: HEMATOCRIT 22.9 % (39.0-48.0)
[2023-12-31 08:10] LABS: HEMOGLOBIN 7.7 g/dL (13-16.00)
[2023-12-31 08:49] VITALS: BP 153/73; O2SAT 97
[2023-12-31 17:24] VITALS: BP 139/64; O2SAT 97
[2024-01-01 00:26] VITALS: BP 151/70; O2SAT 97
[2024-01-01 07:06] LABS: HEMATOCRIT 26.3 % (39.0-48.0); MEAN CELL VOLUME 86.4 fL (80.0-100.00); MEAN CORPUSCULAR HEMOGLOBIN 29.7 pg (27.00-32.0); MEAN CORPUSCULAR HGB CONC 34.4 g/dl (32.0-36.0); PLATELET COUNT 431 K/uL (150-450); RED BLOOD COUNT 3.04 M/uL (4.00-6.00); RED CELL DISTRIBUTION WIDTH 13.9 % (11.5-14.5)
[2024-01-01 08:47] VITALS: BP 134/75; O2SAT 99
[2024-01-01 08:50] VITALS: BP 134/75; O2SAT 99
[2024-01-01] MEDS ORDERED: OxyCODONE HCL/APAP UD (PERCOCET) PO PRN (11:45)
[2024-01-01 16:47] VITALS: BP 130/60; O2SAT 100
[2024-01-02 00:07] VITALS: BP 133/72; O2SAT 97
[2024-01-02 07:46] LABS: MEAN CELL VOLUME 87.1 fL (80.0-100.00); MEAN CORPUSCULAR HEMOGLOBIN 29.8 pg (27.00-32.0); MEAN CORPUSCULAR HGB CONC 34.2 g/dl (32.0-36.0); PLATELET COUNT 462 K/uL (150-450); RED BLOOD COUNT 2.98 M/uL (4.00-6.00); RED CELL DISTRIBUTION WIDTH 14.1 % (11.5-14.5)
[2024-01-02 07:55] LABS: HEMOGLOBIN 8.9 g/dL (13-16.00)
[2024-01-02 08:00] VITALS: BP 146/67; O2SAT 100
== END 2024-01-02 13:18 | disposition home or self-care (01) | DRG 872 ==
LOC: ER 15:40 → SURH 23:28 → SURG 23:28
PROVIDERS: General Practice; Internal Medicine; Nurse Practitioner Family; Student in an Organized Health Care Education/Training Program; Urology; ADMIT Internal Medicine; ATTEND Internal Medicine
PROC: BW21YZZ Computerized Tomography (CT Scan) of Abdomen and Pelvis using Other Contrast (ICD-10-PCS; 2023-12-20)
PROC: BW4GZZZ Ultrasonography of Pelvic Region (ICD-10-PCS; 2023-12-26)
PROC: 0TJB8ZZ Inspection of Bladder, Via Natural or Artificial Opening Endoscopic (ICD-10-PCS; principal; 2023-12-28 17:00)
PROC: 30233N1 Transfusion of Nonautologous Red Blood Cells into Peripheral Vein, Percutaneous Approach (ICD-10-PCS; 2023-12-31)
DX: A41.9 Sepsis, unspecified organism (principal); N39.0 Urinary tract infection, site not specified; N17.9 Acute kidney failure, unspecified; C79.00 Secondary malignant neoplasm of unspecified kidney and renal pelvis; D62 Acute posthemorrhagic anemia; N32.0 Bladder-neck obstruction; C67.9 Malignant neoplasm of bladder, unspecified; D49.4 Neoplasm of unspecified behavior of bladder; R31.29 Other microscopic hematuria; D64.89 Other specified anemias; F17.210 Nicotine dependence, cigarettes, uncomplicated; B95.2 Enterococcus as the cause of diseases classified elsewhere; Z88.6 Allergy status to analgesic agent; Z93.6 Other artificial openings of urinary tract status

== ENCOUNTER → 2024-02-02 | Emergency (ER) | payer OTHER ==
[~2024-02-02] VITALS: Ht 165.1 cm; Wt 45.4 kg
[~2024-02-02] MED LIST: PERCOCET 10-321 EACH
== END | disposition home or self-care (01) ==
LOC: ER 15:02
DX: Z53.29 Procedure and treatment not carried out because of patient's decision for other reasons (principal); R10.9 Unspecified abdominal pain; M54.9 Dorsalgia, unspecified; Z88.6 Allergy status to analgesic agent